=== PATIENT | female | born 1940 | race Two or more races ===

== ENCOUNTER 2023-07-20 08:51 | Outpatient (CLI) | payer OTHER ==
[~2023-07-20 08:51] MED LIST: AVALIDE 150-12.1 TA1; AVAPRO150 MG; DICLOFENAC POTA50 MG PO; SINGULAIR10 MG
== END 2023-07-20 08:57 | disposition home or self-care (01) ==
LOC: RAD 08:51
PROVIDERS: ATTEND Colon & Rectal Surgery
DX: K59.00 Constipation, unspecified (principal); N39.0 Urinary tract infection, site not specified; K62.5 Hemorrhage of anus and rectum; D59.8 Other acquired hemolytic anemias